=== PATIENT | female | born 1985 | race American Indian/Alaskan Native ===

== ENCOUNTER 2018-05-15 19:42 | Emergency (ER) | payer BC ==
[2018-05-15 19:55] VITALS: BP 110/45
--- NOTE | 2018-05-15 19:55 | Emergency Department Report ---
Chief Complaint: Eye Problems Stated Complaint: LEFT EYE IRRITATED RED AND SORE Time Seen by Provider: 05/15/18 19:53 - HPI History of Present Illness: pt presents with left eye pain and drainage that began yesterday has green drainage pt does wear contacts denies any vision problems, no fever denies anything getting in the eye MSE screening note: Focused history and physical exam performed. ED Disposition for MSE Condition: Stable
--- NOTE | 2018-05-15 20:07 | Emergency Department Report ---
ED Eye Problem HPI - General Chief complaint: Eye Problems Stated complaint: LEFT EYE IRRITATED RED AND SORE Time Seen by Provider: 05/15/18 19:53 Source: patient Mode of arrival: Ambulatory Limitations: No Limitations - History of Present Illness Initial comments: Pt is a 32 yo female who presents with left eye pain and drainage that began yesterday. She states she has green colored drainage from the eye. The pt does wear contacts. She denies any vision problems or fever. She denies any one else with the same symptoms. She denies anything getting in the eye or pain with eye movement. - Related Data Previous Rx's Medication Instructions Recorded Last Taken Type medroxyPROGESTERone ACETATE 10 mg PO QDAY #5 tablet 12/07/13 Unknown Rx [Provera] Acetaminophen/Codeine [Tylenol 1 tab PO Q6H PRN #20 tab 03/04/14 Unknown Rx /Codeine # 3 tab] Naproxen [Naprosyn TAB] 500 mg PO BID #30 tablet 03/04/14 Unknown Rx HYDROcodone/ACETAMINOPHEN [[place] 1 each PO Q6H PRN #12 tablet 07/01/14 Unknown Rx 7.5-325 mg TAB] Tobramycin [Tobrex] 2 drops OS Q6HR 5 Days #40 drops 05/15/18 Unknown Rx Allergies Allergy/AdvReac Type Severity Reaction Status Date / Time No Known Allergies Allergy Verified 12/07/13 11:00 ED Review of Systems ROS: Stated complaint: LEFT EYE IRRITATED RED AND SORE Other details as noted in HPI Comment: All other systems reviewed and negative ED Past Medical Hx - Past Medical History Previous Medical History?: Yes Hx Headaches / Migraines: Yes - Surgical History Past Surgical History?: Yes Additional Surgical History: x 2 - Social History Smoking Status: Never Smoker Substance Use Type: None - Medications Home Medications: Home Medications Medication Instructions Recorded Confirmed Last Taken Type medroxyPROGESTERone ACETATE 10 mg PO QDAY #5 tablet 12/07/13 Unknown Rx [Provera] Acetaminophen/Codeine [Tylenol 1 tab PO Q6H PRN #20 tab 03/04/14 Unknown Rx /Codeine # 3 tab] Naproxen [Naprosyn TAB] 500 mg PO BID #30 tablet 03/04/14 Unknown Rx HYDROcodone/ACETAMINOPHEN [[place] 1 each PO Q6H PRN #12 tablet 07/01/14 Unknown Rx 7.5-325 mg TAB] Tobramycin [Tobrex] 2 drops OS Q6HR 5 Days #40 drops 05/15/18 Unknown Rx ED Physical Exam - General Limitations: No Limitations General appearance: alert, in no apparent distress - Head Head exam: Present: atraumatic, normocephalic - Eye Eye exam: Present: PERRL, EOMI, other (left sided injection with small amount of crusted drainage, right eye is normal, no orbital or preseptal edema or erythema) - Respiratory Respiratory exam: Absent: respiratory distress - Cardiovascular Cardiovascular Exam: Present: regular rate - Neurological Exam Neurological exam: Present: alert, oriented X3 - Psychiatric Psychiatric exam: Present: normal affect, normal mood - Skin Skin exam: Present: warm, dry, intact ED Course Vital Signs 05/15/18 19:53 Temperature 99.1 F Pulse Rate 89 Respiratory 16 Rate Blood Pressure 110/45 O2 Sat by Pulse 100 Oximetry ED Medical Decision Making - Medical Decision Making Pt is a 32 yo female who presents with left eye pain and drainage that began yesterday. She states she has green colored drainage from the eye. The pt does wear contacts. She denies any vision problems or fever. She denies any one else with the same symptoms. She denies anything getting in the eye or pain with eye movement. Pt examination and symptoms consistent with left sided conjunctivits. Will tx pt with eye drops, advised to use as prescribed. Advised pt to follow up with eye doctor and PCP in the next 2-3 days. Advised to take out contacts immediately and wear eyeglasses until completion of treatment and resolution of sx. Return to the emergency room for any new or worsening symptoms. Critical care attestation.: If time is entered above; I have spent that time in minutes in the direct care of this critically ill patient, excluding procedure time. ED Disposition Clinical Impression: Left conjunctivitis Qualifiers: Conjunctivitis type: unspecified Qualified Code(s): H10.9 - Unspecified conjunctivitis Disposition: TO HOME OR SELFCARE Is pt being admited?: No Does the pt Need Aspirin: No Condition: Stable Instructions: Conjunctivitis (ED) Additional Instructions: Please use eyedrops as prescribed. Please take your contacts out immediately and use reading glasses as needed. Follow up with your primary care doctor in the next 2-3 days. Also, follow up with an eye doctor in the next 2-3 days. Return to the emergency room for any new or worsening symptoms. Prescriptions: Tobramycin [Tobrex] 2 drops OS Q6HR 5 Days #40 drops Referrals: [facility] [Provider Group] - 2-3 Days Forms: Work/School Release Form(ED) Time of Disposition: 20:12 Print Language: TONGAN
== END 2018-05-15 20:49 | disposition home or self-care (01) ==
LOC: ED 19:42
DX: H10.9 Unspecified conjunctivitis (principal); G43.909 Migraine, unspecified, not intractable, without status migrainosus
CPT/HCPCS: 99282

== ENCOUNTER 2018-11-14 07:57 | Emergency (ER) | payer BC ==
[2018-11-14 08:02] VITALS: BP 127/72
--- NOTE | 2018-11-14 09:05 | Emergency Department Report ---
ED Extremity Problem HPI - General Chief complaint: Extremity Injury, Upper Stated complaint: RT THUMB SWOLLEN Time Seen by Provider: 11/14/18 08:07 Source: patient Mode of arrival: Ambulatory Limitations: No Limitations - History of Present Illness Initial comments: Patient is a 33-year-old female who is presenting with 2 days of some pain. Patient states she has pain when trying to move the phone. The patient appreciate some swelling as well. 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 Patient states the pain is 6 out of 10 in severity as a throbbing pain. She states she woke up 2 days ago with the pain. She does not remember doing anything overnight that would've caused pain. - Related Data Previous Rx's Medication Instructions Recorded Last Taken Type medroxyPROGESTERone ACETATE 10 mg PO QDAY #5 tablet 12/07/13 Unknown Rx [Provera] Acetaminophen/Codeine [Tylenol 1 tab PO Q6H PRN #20 tab 03/04/14 Unknown Rx /Codeine # 3 tab] Naproxen [Naprosyn TAB] 500 mg PO BID #30 tablet 03/04/14 Unknown Rx HYDROcodone/ACETAMINOPHEN [[place] 1 each PO Q6H PRN #12 tablet 07/01/14 Unknown Rx 7.5-325 mg TAB] Tobramycin [Tobrex] 2 drops OS Q6HR 5 Days #40 drops 05/15/18 Unknown Rx Ibuprofen [Motrin 800 MG tab] 800 mg PO Q8HR PRN #10 tablet 11/14/18 Unknown Rx traMADol [Ultram] 50 mg PO Q6HR PRN #10 tablet 11/14/18 Unknown Rx Allergies Allergy/AdvReac Type Severity Reaction Status Date / Time No Known Allergies Allergy Verified 12/07/13 11:00 ED Review of Systems ROS: Stated complaint: RT THUMB SWOLLEN Other details as noted in HPI Comment: All other systems reviewed and negative ED Past Medical Hx - Past Medical History Previous Medical History?: No Hx Headaches / Migraines: Yes - Surgical History Additional Surgical History: x 2 - Social History Smoking Status: Current Every Day Smoker Substance Use Type: Alcohol - Medications Home Medications: Home Medications Medication Instructions Recorded Confirmed Last Taken Type medroxyPROGESTERone ACETATE 10 mg PO QDAY #5 tablet 12/07/13 Unknown Rx [Provera] Acetaminophen/Codeine [Tylenol 1 tab PO Q6H PRN #20 tab 03/04/14 Unknown Rx /Codeine # 3 tab] Naproxen [Naprosyn TAB] 500 mg PO BID #30 tablet 03/04/14 Unknown Rx HYDROcodone/ACETAMINOPHEN [[place] 1 each PO Q6H PRN #12 tablet 07/01/14 Unknown Rx 7.5-325 mg TAB] Tobramycin [Tobrex] 2 drops OS Q6HR 5 Days #40 drops 05/15/18 Unknown Rx Ibuprofen [Motrin 800 MG tab] 800 mg PO Q8HR PRN #10 tablet 11/14/18 Unknown Rx traMADol [Ultram] 50 mg PO Q6HR PRN #10 tablet 11/14/18 Unknown Rx ED Physical Exam - General Limitations: No Limitations General appearance: alert, in no apparent distress - Head Head exam: Present: atraumatic, normocephalic - Eye Eye exam: Present: normal appearance, PERRL, EOMI - ENT ENT exam: Present: mucous membranes moist - Neck Neck exam: Present: normal inspection - Respiratory Respiratory exam: Absent: respiratory distress - Cardiovascular Cardiovascular Exam: Present: regular rate, normal rhythm - GI/Abdominal GI/Abdominal exam: Absent: distended - Extremities Exam Extremities exam: Present: normal inspection - Expanded Upper Extremity Exam Right Hand Wrist exam: Present: tenderness (tenderness to the right thumb at the interphalangeal joint. There is no swelling appreciated. No redness or indurated skin.) - Back Exam Back exam: Present: normal inspection - Neurological Exam Neurological exam: Present: alert, oriented X3 - Psychiatric Psychiatric exam: Present: normal affect, normal mood - Skin Skin exam: Present: warm, dry, intact, normal color. Absent: rash ED Course Vital Signs 11/14/18 08:01 Temperature 98.3 F Pulse Rate 83 Respiratory 18 Rate Blood Pressure 127/72 O2 Sat by Pulse 100 Oximetry ED Medical Decision Making - Radiology Data Radiology results: image reviewed (x-ray shows no acute fracture) - Medical Decision Making Patient presented to have a thumb sprain. Patient placed in a Velcro thumb spica splint will have follow with orthopedics as needed. Critical care attestation.: If time is entered above; I have spent that time in minutes in the direct care of this critically ill patient, excluding procedure time. ED Disposition Clinical Impression: Sprain of hand, thumb, right Qualifiers: Encounter type: initial encounter Sprain of finger site: interphalangeal joint Qualified Code(s): S63.621A - Sprain of interphalangeal joint of right thumb, initial encounter Disposition: TO HOME OR SELFCARE Is pt being admited?: No Does the pt Need Aspirin: No Condition: Stable Instructions: Finger Sprain (ED) Referrals: LIBBY SEYMOUR MD [Staff Physician] - 3-5 Days Forms: Work/School Release Form(ED) Time of Disposition: 09:04
--- NOTE | 2018-11-14 09:17 | XRay Report ---
RIGHT FINGERS, 2 VIEWS INDICATION: pain at right thumb with min swelling. Smashed thumb. Injury. COMPARISON: None. IMPRESSION: No acute osseous or soft tissue abnormality. No significant DJD. Signer Name: Braeden Coulter Jr, MD Signed: 11/14/2018 9:13 AM Workstation Name: [id number]
== END 2018-11-14 09:25 | disposition home or self-care (01) ==
LOC: ED 07:57
DX: S63.621A Sprain of interphalangeal joint of right thumb, initial encounter (principal); G43.909 Migraine, unspecified, not intractable, without status migrainosus; F17.200 Nicotine dependence, unspecified, uncomplicated; Z79.899 Other long term (current) drug therapy; X58.XXXA Exposure to other specified factors, initial encounter; Y93.89 Activity, other specified; Y92.89 Other specified places as the place of occurrence of the external cause; Y99.8 Other external cause status